=== PATIENT | female | born 1970 | race Two or more races ===

== ENCOUNTER → 2017-06-26 | Outpatient (CLI) | payer OTHER ==
[~2017-06-26] VITALS: Ht 160 cm; Wt 70.8 kg
[~2017-06-26] MED LIST: OMEP20CA9 PO
[2017-06-26 09:41] VITALS: BP 122/72
--- NOTE | 2017-06-26 13:16 | RAD ---
DATE: 06/26/2017 EXAM: DIGITAL DIAGNOSTIC LT, GUID NDL PLACE/ASPI/BX, GUID NDL PLACE/ASPI/BX HISTORY: Left breast cyst and left breast nodule. COMPARISON: Bilateral diagnostic mammogram 05/21/2017, bilateral breast sonogram 05/21/2017 FINDINGS/technique: The procedure and risk and benefits were explained to the patient and who was present during the examination and patient wished to proceed. Risks included bleeding, infection and damage to adjacent structures. Patient signed written informed consent. The left breast was prepped and draped in the usual sterile fashion. Redemonstration of a circumscribed hypoechoic left breast nodule measuring 1.5 x 0.9 x 1.6 cm. The skin was anesthetized with 1% lidocaine. The nodule was also anesthetized with 1% lidocaine. A 14-gauge Bard core biopsy needle was advanced her sonographic guidance into the nodule and two 2-cm core biopsies were obtained and placed into formalin and sent to pathology. Subsequently, the same sterile field, a left breast cyst at 12:00 position 2 cm from the nipple measuring 2.6 x 1.4 x 2.3 cm with internal echoes and no internal blood flow. Patient's overlying skin was anesthetized with lidocaine and adjacent to the cyst was also anesthetized with 1% lidocaine solution. A 18-gauge needle was advanced under sonographic guidance into the cyst with aspiration of proximal 6 mL of milky fluid. The cyst contents were sent to pathology for culture. There was complete collapse of the cyst. Postbiopsy left breast mammogram: Digital 2-D field CC and MLO views demonstrate S shaped clip on the inferior margin of the mass at approximately the 9:00 position. Sonographic survey post biopsy and aspiration did not demonstrate any sonographically detectable complication. The patient left the department in stable condition. IMPRESSION: 1. Technically successful core biopsy of left breast nodule 10:00 position 6 cm from the nipple with biopsy marker along the inferior margin of the nodule at approximately 9:00. 2. Technically successful aspiration of left breast cyst 12:00 position 2 cm from the nipple, as detailed above.
--- NOTE | 2017-06-27 13:34 | PATHOLOGY ---
PATHOLOGY REPORT * * * * * * * * FINAL DIAGNOSIS: Breast tissue, left breast mass needle biopsy: - Fibroadenoma. COMMENT: There is no evidence of malignancy. (JPM:mml; 06/27/2017) REPORT ELECTRONICALLY SIGNED BY: Oscar Lea M.D. DATE/TIME: 06/27/2017 13:33 * * * * * * * * GROSS PATHOLOGY: Received in formalin labeled "[place], left breast," are two needle cores of martinez soft tissue measuring 1.2 and 1.8 cm in length and less than 0.1 cm in diameter. The specimen is submitted entirely in cassette A1. The cold ischemic time is 5 minutes. The total formalin fixation time is 12 hours and 10 minutes. (JPM; 06/26/17) INITIAL CPT CODE(S): A; 07434 Professional services [place] [address] Technical services performed by [facility] at [address] [place] [address], [facility] [address] [address]. Dr. Lynch, [facility] Radiology fax: [phone] [facility] SPECIMEN(S) RECEIVED: A.Left breast mass CLINICAL HISTORY: Left breast mass and cyst PROCEDURE: ~5 cc of purulent appearing yellow martinez thick fluid submitted to Microbiology for cultures. PATIENT: SEYMOUR CAMP /AGE: 1009/13/1970 (Age: 46) PATIENT #: [id number] ALT CASE #: SPECIMEN COLLECTION DATE: 06/26/2017 SPECIMEN RECEIVED DATE: 06/26/2017 [facility] - [address] [place] [address] - PHONE: [phone] * * * END OF REPORT * * *
== END | disposition home or self-care (01) ==
LOC: US 09:19
PROVIDERS: ATTEND Surgery
DX: N60.02 Solitary cyst of left breast (principal); N63 Unspecified lump in breast; N64.4 Mastodynia
CPT/HCPCS: 76942; 87102; 87205; G0206; 87071; 87075; 88305; 77065

== ENCOUNTER → 2021-09-18 | Outpatient (CLI) | payer OTHER ==
[2017-06-26 09:41] VITALS: BP 122/72
[~2021-09-18] MED LIST changes: +OMEP20CA16 PO; -OMEP20CA9 PO
--- NOTE | 2021-09-18 11:03 | RAD ---
EXAM: Nuclear hepatobiliary scan. HISTORY: Pain. TECHNIQUE: Following intravenous administration of 5.5 mCi Tc 99m Choletec, anterior images of the ab domen were obtained at five minute intervals through one hour. FINDINGS: There is prompt radiotracer uptake by the liver. No focal defect is seen. There is normal e xcretion into the biliary tree. The gallbladder is visualized within 10 minutes and there is free yenifer w into the duodenum. The gallbladder ejection fraction is not calculated. IMPRESSION: Unremarkable hepatobiliary scan. Request was made for no assessment of gallbladder ejecti on fraction. Electronically signed by: Margie Lewis MD (09/18/2021 11:01 AM) [id number]
== END ==
LOC: NM 08:52
PROVIDERS: ATTEND Family Medicine
DX: R10.84 Generalized abdominal pain (principal); R10.11 Right upper quadrant pain
CPT/HCPCS: 78226; A9537; 96374

== ENCOUNTER → 2021-09-27 | Outpatient (CLI) | payer OTHER ==
[2017-06-26 09:41] VITALS: BP 122/72
--- NOTE | 2021-09-28 15:51 | RAD ---
EXAMINATION: MG DIAGNOSTIC BILAT, US BREAST BILAT History: Breast pain, history of benign left breast biopsy-fibroadenoma. History of multiple masses c onsistent in both breasts. Comparison: Mammograms 05/13/2017, 06/26/2017, 07/18/2018. Ultrasound 05/21/2017 03/18/2018, and 8. Technique: Bilateral digital diagnostic mammogram views were obtained. CAD was utilized. 3-D tomosyn thesis images were acquired. Findings: Mammogram: Breast Tissue Density C : The breasts are heterogeneously dense, which may obscure small masses. There is a 2.4 cm mass and adjacent 6 mm round mass in the upper outer left breast far posterior dept h. There is a round 4 mm mass at approximately 11-12:00 middle depth left breast. In the right breast , there is a 9 mm ovoid mass at 10:00 anterior depth to the nipple. There is a additional 8mm mass in the right breast at 12:00 posterior depth. Diffuse bilateral calcifications are unchanged. A biopsy clip is seen in the medial left breast in the region of 10:00. Ultrasound: Right breast: 12:00 5 cm from the nipple 0.7 x 0.5 x 0.4 cm anechoic simple cyst. This was seen on ultrasound 2017 and is stable. 2:00 2 cm from nipple: 1.4 x 0.8 x 0.5 cm ovoid hypoechoic circumscribed mass 2:00 3 cm the nipple: 0.4 x 0.4 x 0.3 cm ovoid hypoechoic circumscribed mass. The masses at 2:00 2-3 cm from the nipple have been seen on ultrasounds including 11/10/2018 and are stable. 9:00 2 cm from the nipple: 1.1 x 0.8 x 0.6 cm ovoid hypoechoic macrolobulated mass. There is a simple cyst of similar size in this region on ultrasound 05/21/2017 but no solid mass. There are mildly dilated ducts in the right retroareolar region with no internal mass or debris. No r ight axillary lymphadenopathy. Left breast: 2:00 7 cm the nipple: 1.9 x 1.9 x 0.7 cm ovoid hypoechoic circumscribed mass. 2:00 6 cm from nipple: 1.1 x 1.1 x 0.6 cm ovoid circumscribed mass. 11:00 5 cm the nipple: 1.1 x 0.5 x 0.4 cm anechoic simple cyst 11:00 5 cm the nipple: 0.6 x 0.6 x 0.5 cm anechoic simple cyst. The cysts seen on 11:00 5 cm from the nipple correspond with cysts in this region on 11/10/2018 and are stable. Slightly prominent ducts in the left retroareolar region. No left axillary lymphadenopathy. IMPRESSION: 1. Probably benign circumscribed bilateral masses, all similar in appearance and similar to the biops y-proven fibroadenoma in the left breast from 2017. Several of these have been stable since at least 2018 and do not require follow-up. The masses at 2:00 in the left breast and at 9:00 in the right crystal ast were not definitively seen on the prior ultrasound. Recommend 6 month follow-up ultrasound to ens ure stability. 2. Stable bilateral simple cysts. BI-RADS category 3: Probably benign. Mammography is the most sensitive method for finding small breast cancers, but it does not detect the m all and is not a substitute for careful clinical examination. A negative mammogram does not negate a clinically suspicious finding and should not result in delay in biopsying a clinically suspicious a bnormality. "Our facility is accredited by the [employer] Mammography Program." Mammography is the most sensitive method for finding small breast cancers, but it does not detect the m all and is not a substitute for careful clinical examination. A negative mammogram does not negate a clinically suspicious finding and should not result in delay in biopsying a clinically suspicious a bnormality. "Our facility is accredited by the [employer] Mammography Program." Electronically signed by: Karli Flores MD (09/28/2021 3:49 PM) [id number]
== END ==
LOC: MAMMO 11:33
PROVIDERS: ATTEND Family Medicine
DX: N60.01 Solitary cyst of right breast (principal); N60.02 Solitary cyst of left breast; N63.14 Unspecified lump in the right breast, lower inner quadrant; N63.11 Unspecified lump in the right breast, upper outer quadrant; N63.21 Unspecified lump in the left breast, upper outer quadrant
CPT/HCPCS: 77066; 76641-50

== ENCOUNTER → 2021-11-29 | Day surgery (SDC) | payer OTHER ==
[~2021-11-29] VITALS: Ht 162.6 cm; Wt 70.0 kg
[~2021-11-29] MED LIST changes: +IV RINGERS,LACTATED 1000ML 1,000 ML IV SCH; +LIDOCAINE 2% PF 5 ML VIAL. ONE; +PROPOFOL 10 MG/ML (20ML) VIAL. IV ONE; +SIMV20TA18 PO
[2021-11-29 08:37] VITALS: BP 142/68
[2021-11-29 10:24] VITALS: BP 122/68
--- NOTE | 2021-11-29 11:01 | PREOP HP ---
DATE OF SERVICE: 11/29/2021 DATE OF PROCEDURE: 11/29/2021. REQUESTING PHYSICIAN: Ta Welch MD PRIMARY CARE PHYSICIAN: Ta Welch MD REASON FOR PROCEDURE: Abdominal pain and colon cancer screening. HISTORY OF PRESENT ILLNESS: This is a 51-year-old female who presents with abdominal pain, dysphagia and for colon cancer screening. ALLERGIES: 1. PENICILLIN. 2. BACTRIM. 3. ASPIRIN. PAST MEDICAL HISTORY: Reflux. FAMILY MEDICAL HISTORY: Colon cancer. REVIEW OF SYSTEMS: A 13-point review of systems was done, it is positive as per HPI and otherwise negative. PHYSICAL EXAMINATION: VITAL SIGNS: She is afebrile and vital signs are stable. GENERAL: She is a well-developed, well-nourished female in no apparent distress. HEENT: Oropharynx is clear. CARDIOVASCULAR: S1, S2. LUNGS: Clear. ABDOMEN: Normoactive bowel sounds, soft, nontender, nondistended. EXTREMITIES: No edema. NEUROLOGIC: Awake, alert and oriented x 3. ASSESSMENT AND PLAN: 1. Abdominal pain. 2. Colon cancer screening. The risks and benefits of the upper and lower endoscopy were explained and she has agreed to proceed. Thank you for allowing me to participate in the care of this patient. LISBETH/MARCI DR: Tenisha TID: [id number]
--- NOTE | 2021-11-30 17:09 | PATHOLOGY ---
[facility] Accession Number: [id number] . 01 Material submitted: . PART A: small bowel - SMALL BOWEL BIOPSY PART B: stomach - ANTRUM AND BODY BIOPSY PART C: stomach - FUNDIC POLYP BIOPSY PART D: esophagus - DISTAL ESOPHAGUS BIOPSY. Modifiers: distal PART E: esophagus - MID ESOPHAGUS BIOPSY. Modifiers: mid PART F: colon - ASCENDING COLON POLYP BIOPSY. Modifiers: ascending . 01 Clinical history: . ABDOMINAL PAIN EGD/ COLONOSCOPY . 02 Diagnosis: A. Small bowel biopsy: - No diagnostic abnormalities. . B. Gastric biopsy, gastric body and gastric antrum: - Mild chronic antral gastritis. . C. Gastric biopsy, fundic polyp: - Fundic gland polyp. . D. Esophageal biopsy, distal esophagus: - Segments of esophagogastric and gastric mucosa showing mild chronic inflammation. . E. Esophageal biopsy, middle esophagus: - Segments of mildly hyperplastic squamous esophageal mucosa. . F. Colon biopsy, ascending colon polyp: - Prominent mucosal fold showing melanosis coli and two focally hyperplastic mucosal-associated lymphoid aggregates. (JPM:boyd; 11/30/2021) [facility] [place]30/20[place] 1648 Local . 02 Comment: Sections of the small bowel biopsy reveal segments of duodenal and small intestine mucosa. Where best oriented, the mucosal villi show no sprue-like changes or significant inflammatory changes. . Sections of the gastric biopsy reveal segments of gastric body and gastric antral mucosa. The gastric body mucosa shows superficial congestion and no significant inflammation. The gastric antral mucosa shows congestion and mild chronic inflammation. A properly controlled immunoperoxidase stain for Helicobacter is negative for Helicobacter organisms. . Sections of the gastric fundic biopsy reveal a fundic gland polyp. There are no adenomatous changes or evidence of malignancy. . Sections of the distal esophageal biopsy reveal segments of esophagogastric and gastric mucosa showing mild chronic inflammation. The squamous mucosa is mildly hyperplastic, consistent with reflux changes. There is no evidence of Carias's change, dysplasia, or malignancy. . Sections of the middle esophagus biopsy reveal segments of tangentially oriented mildly hyperplastic squamous esophageal mucosa. . Sections of the ascending colon polyp biopsy reveal a segment of colonic mucosa consistent with prominent fold, which shows melanosis coli and contains two focally hyperplastic muocsal-associated lymphoid aggregates. There are no adenomatous changes or evidence of malignancy. (JPM:boyd; 11/30/2021) . . Special stain performed: Immunoperoxidase stain for Helicobacter on B1 . 02 Electronically signed: . Oscar Lea MD, Pathologist NPI- [id number] . 01 Gross description: . A. The specimen is received in formalin, labeled "Favelasalas, Marylin, small bowel BX". Received are 4 segments of pale martinez tissue ranging in size from 0.3-0.4 cm in maximum dimensions. The specimen is entirely submitted in cassette A1. . B. The specimen is received in formalin, labeled "Favelasalas, Marylin, antrum and body BX". Received are 4 segments of pale martinez tissue ranging in size from 0.3-0.5 cm in maximum dimensions. The specimen is entirely submitted in cassette B1. . C. The specimen is received in formalin, labeled "Favelasalas, Marylin, fundic polyps BX". Received are 3 segments of pale martinez tissue ranging in size from 0.3-0.4 cm in maximum dimensions. The specimen is entirely submitted in cassette C1. . D. The specimen is received in formalin, labeled "Favelasalas, Marylin, distal esophagus BX". Received are 2 segments of pale martinez tissue ranging in size from 0.2-0.3 cm in maximum dimensions. The specimen is entirely submitted in cassette D1. . E. The specimen is received in formalin, labeled "Favelasalas, Marylin, mid esophagus BX". Received are 2 segments of pale martinez tissue measuring 0.2 and 0.3 cm in maximum dimensions. The specimen is entirely submitted in cassette E1. . F. The specimen is received in formalin, labeled "Favelasalas, Marylin, ascending colon polyp BX". Received is a single segment of pale martinez tissue measuring 0.4 cm in maximum dimensions. The specimen is entirely submitted in cassette F1. ([facility]; 11/29/2021) NRI/NRI 11/29/2021 [facility]6 Local . 02 Pathologist provided ICD-10: K29.50, K31.7, K20.90, K63.89 . 02 CPT . 781536, 653506, 472463, 828076, 107295, 283964, [id number] Specimen Comment: A courtesy copy of this report has been sent to [phone], [phone] Specimen Comment: [id number] Specimen Comment: Report sent to / DR JUDD Specimen Comment: A duplicate report has been generated due to demographic updates. Performed at: 01 [facility] [address] [facility], [place] [id number] MD Claude Carver MD Phone: [phone] Performed at: 02 [facility] [address] [place], [place] [id number] MD Oscar Lea MD Phone: [phone]
== END | disposition home or self-care (01) ==
LOC: ENDOS 08:01
PROVIDERS: ATTEND Internal Medicine Gastroenterology
DX: R10.11 Right upper quadrant pain (principal); R13.10 Dysphagia, unspecified; K64.0 First degree hemorrhoids; K29.50 Unspecified chronic gastritis without bleeding; K31.7 Polyp of stomach and duodenum; K63.5 Polyp of colon; K31.89 Other diseases of stomach and duodenum; K63.89 Other specified diseases of intestine; K21.00 Gastro-esophageal reflux disease with esophagitis, without bleeding; E78.00 Pure hypercholesterolemia, unspecified; Z79.899 Other long term (current) drug therapy; Z98.890 Other specified postprocedural states; Z88.0 Allergy status to penicillin; Z88.1 Allergy status to other antibiotic agents; Z88.2 Allergy status to sulfonamides; Z88.8 Allergy status to other drugs, medicaments and biological substances; Z20.822 Contact with and (suspected) exposure to COVID-19
CPT/HCPCS: 43239; 43450; 45380; 81025; 87426; J2704; 88305; 88342

== ENCOUNTER → 2022-02-21 | Outpatient (CLI) | payer OTHER ==
[2021-11-29 10:24] VITALS: BP 122/68
[~2022-02-21] MED LIST changes: -IV RINGERS,LACTATED 1000ML 1,000 ML IV SCH; -LIDOCAINE 2% PF 5 ML VIAL. ONE; -PROPOFOL 10 MG/ML (20ML) VIAL. IV ONE; +SINCALIDE 1.43 MCG in IV NORMAL SALINE 50ML 30 ML IV ONE
--- NOTE | 2022-02-21 10:34 | RAD ---
EXAM: ULTRASOUND ABDOMEN COMPLETE CLINICAL HISTORY: Pain. COMPARISON: None available. TECHNIQUE: Ultrasound of the upper abdomen was performed. FINDINGS: The liver is normal in size. No hepatic lesion is seen. The gallbladder is unremarkable. Th e common bile duct is normal in caliber. The kidneys are normal in size. There is no hydronephrosis. The spleen is normal in size. The pancreas is obscured due to bowel gas. The aorta is normal in calib er. The inferior vena cava is patent. IMPRESSION: 1. No acute sonographic finding. 2. Obscured pancreas due to bowel gas. Electronically signed by: Margie Lewis MD (02/21/2022 10:32 AM) [facility]
--- NOTE | 2022-02-21 10:47 | RAD ---
EXAM: Nuclear hepatobiliary scan. HISTORY: Pain. TECHNIQUE: Following intravenous administration of 5.4 mCi Tc 99m Choletec, anterior images of the ab domen were obtained at five minute intervals through one hour. Subsequently, 1.43 mcg Kinevac was adm inistered and additional images to assess gallbladder ejection fraction were obtained. FINDINGS: There is prompt radiotracer uptake by the liver. No focal defect is seen. There is normal e xcretion into the biliary tree. The gallbladder is visualized within 5 minutes and there is free flow into the duodenum. The gallbladder ejection fraction is 89 percent. IMPRESSION: High gallbladder ejection fraction of 89 percent. Electronically signed by: Margie Lewis MD (02/21/2022 10:45 AM) [facility]
== END ==
LOC: US 07:41
PROVIDERS: ATTEND Internal Medicine Gastroenterology
DX: R14.3 Flatulence (principal)
CPT/HCPCS: 76700; 78227; A9537; J2805

== ENCOUNTER 2022-04-11 12:35 | Emergency (ER) | payer OTHER ==
[~2022-04-11] VITALS: Ht 162.6 cm; Wt 70.1 kg
[~2022-04-11 12:35] MED LIST changes: -SINCALIDE 1.43 MCG in IV NORMAL SALINE 50ML 30 ML IV ONE
[2022-04-11 12:38] VITALS: BP 154/75
[2022-04-11] MEDS ORDERED: IV NORMAL SALINE 1000ML BAG 1,000 ML IV ONE (13:15)
[2022-04-11] MEDS ORDERED: ONDANSETRON PF 4 MG/2 ML VIAL. IVP ONE (13:15)
[2022-04-11] MEDS ORDERED: MORPHINE SULFATE 4 MG/ML INJ. IVP ONE (13:15)
[2022-04-11 13:27] LABS: BASO % 0 % (0-3); EOS # 0.1 x10^3/uL (0.0-0.7); EOS % 1 % (0-3); HEMATOCRIT 38.8 % (36.0-47.0); HEMOGLOBIN 13.5 g/dL (12.0-15.5); LYMPH # 1.5 x10^3/uL (1.0-4.8); LYMPH % 26 % (24-48); MEAN CORPUSCULAR HEMOGLOBIN 33 pg (25-35); MEAN CORPUSCULAR HGB CONC 35 g/dL (31-37); MEAN CORPUSCULAR VOLUME 95 fL (79-100); MONO # 0.3 x10^3/uL (0.0-1.1); MONO % 6 % (0-9); NEUT # 3.9 x10^3/uL (1.8-7.7); NEUT % 67 % (31-73); PLATELET COUNT 228 x10^3/uL (140-400); WHITE BLOOD COUNT 5.8 x10^3/uL (4.0-11.0)
[2022-04-11 13:36] LABS: CALCIUM 8.6 mg/dL (8.5-10.1); CREATININE 0.8 mg/dL (0.6-1.0); GFR 75.3; PROTHROMBIN TIME PATIENT 12.5 SEC (11.7-14.0)
[2022-04-11 13:41] LABS: ALBUMIN 3.5 g/dL (3.4-5.0); TOTAL BILIRUBIN 0.2 mg/dL (0.2-1.0); TOTAL PROTEIN 6.9 g/dL (6.4-8.2)
--- NOTE | 2022-04-11 13:41 | RAD ---
CT abdomen and pelvis without contrast PQRS statement: CT scans at this facility use dose reduction including either automated exposure cont rol, iterative reconstructions, and /or weight based radiation dosing via mA and kV modification when appropriate to reduce radiation dose to as low as reasonably achievable. HISTORY: Abdominal pain. Status post cholecystectomy one week ago. Abdomen findings: 3 mm nodule right middle lobe image 1. Recent cholecystectomy, no fluid collection or hematoma at the gallbladder fossa evident. Inferior posterior right hepatic lobe 2 cm cyst density . Units. Spleen, pancreas, adrenal glands unremarkable. Mild bilateral renal pelviectasis. No urinary calculi. No obstruction or inflammation of the GI tract. Appendix is normal. No abdominal fluid or h ematoma. No abdominal wall fluid collection or hematoma. Bones are unremarkable. Pelvis findings: Globular enlarged uterus, perhaps due to underlying leiomyomas although this is inde terminate. Ovaries, bladder, rectum and bones are unremarkable. No pelvic fluid. IMPRESSION: 1. No acute process. 2. Cholecystectomy. No fluid collection or hematoma at the gallbladder fossa or within the abdomen or pelvis. 3. The appendix is normal. 4. Globular enlarged uterus. Perhaps this is due to underlying leiomyomas or due to an other underlyi ng uterine mass. Consider further assessment with pelvic sonography. 5. 3 mm right middle lobe solitary pulmonary nodule. If the patient has risk factors for malignancy, consider CT chest imaging follow-up in 12 months, otherwise no follow-up is necessary, based on the F germánchner guidelines. Electronically signed by: Dimitri Brock MD (04/11/2022 1:39 PM) [facility]
[2022-04-11] MEDS ORDERED: POLY17PO29 PO (14:36)
--- NOTE | 2022-04-11 14:44 | PHYS DOC ---
Past Medical History Past Medical History: No Pertinent History, GERD Past Surgical History: Cholecystectomy Smoking Status: Never Smoker Alcohol Use: None Adult General Chief Complaint Chief Complaint: POST-OP PROBLEM HPI HPI 51-year-old female, past medical history GERD, gastritis, recent cholecystectomy approximately 1 week ago, presents with diffuse abdominal pain, constipation, only passed a small BM after taking [id number] herbal laxative. Denies fever, chills, nausea, vomiting, chest pain, shortness of breath or urinary complaints. Patient states he had an unremarkable postop period however has had difficulty controlling the pain with ibuprofen that she was prescribed and therefore she took 1 oxycodone. Review of Systems Review of Systems Constitutional: Denies fever or chills [] Eyes: Denies change in visual acuity, redness, or eye pain [] HENT: Denies nasal congestion or sore throat [] Respiratory: Denies cough or shortness of breath [] Cardiovascular: No additional information not addressed in HPI [] GI: + abdominal pain and constipation, no nausea, vomiting, bloody stools or diarrhea [] : Denies dysuria or hematuria [] Musculoskeletal: Denies back pain or joint pain [] Integument: Denies rash or skin lesions [] Neurologic: Denies headache, focal weakness or sensory changes [] Endocrine: Denies polyuria or polydipsia [] All other systems were reviewed and found to be within normal limits, except as documented in this note. Current Medications Current Medications Current Medications Medications (Trade) Dose Ordered Sig/Rinku Start Time Stop Time Status Last Admin Dose Admin Morphine Sulfate (Morphine Sulfate) 4 mg 1X ONCE 04/11/22 13:15 04/11/22 13:16 DC 04/11/22 13:34 4 MG Ondansetron HCl (Zofran) 4 mg 1X ONCE 04/11/22 13:15 04/11/22 13:16 DC 04/11/22 13:34 4 MG Sodium Chloride 1,000 ml @ 999 mls/hr 1X ONCE 04/11/22 13:15 04/11/22 14:15 DC 04/11/22 13:34 999 MLS/HR Allergies Allergies Allergies Coded Allergies Type Severity Reaction Last Updated Verified salicylic acid Allergy Severe facial/ throat swelling 11/29/21 Yes Penicillins Allergy Intermediate 11/29/21 Yes sulfamethoxazole Allergy Intermediate 11/29/21 Yes trimethoprim Allergy Intermediate 11/29/21 Yes Physical Exam Physical Exam Constitutional: Well developed, well nourished, no acute distress, non-toxic appearance. [] HENT: Normocephalic, atraumatic, bilateral external ears normal, oropharynx moist, no oral exudates, nose normal. [] Eyes: PERRLA, EOMI, conjunctiva normal, no discharge. [] Neck: Normal range of motion, no tenderness, supple, no stridor. [] Cardiovascular:Heart rate regular rhythm, no murmur [] Lungs & Thorax: Bilateral breath sounds clear to auscultation [] Abdomen: Bowel sounds normal, soft, +mild epigastric ttp, no masses, no pulsatile masses. [] Skin: Warm, dry, no erythema, no rash. [] Back: No tenderness, no CVA tenderness. [] Extremities: No tenderness, no cyanosis, no clubbing, ROM intact, no edema. [] Neurologic: Alert and oriented X 3, normal motor function, normal sensory function, no focal deficits noted. [] Psychologic: Affect normal, judgement normal, mood normal. [] Current Patient Data Vital Signs Vital Signs Date Time Temp Pulse Resp B/P (MAP) Pulse Ox O2 Delivery O2 Flow Rate FiO2 04/11/22 13:34 20 99 Room Air 04/11/22 12:38 98.6 74 154/75 (101) 98.6 Lab Values Laboratory Tests Test 04/11/22 13:18 White Blood Count 5.8 x10^3/uL (4.0-11.0) Red Blood Count 4.10 x10^6/uL (3.50-5.40) Hemoglobin 13.5 g/dL (12.0-15.5) Hematocrit 38.8 % (36.0-47.0) Mean Corpuscular Volume 95 fL (79-100) Mean Corpuscular Hemoglobin 33 pg (25-35) Mean Corpuscular Hemoglobin Concent 35 g/dL (31-37) Red Cell Distribution Width 14.0 % (11.5-14.5) Platelet Count 228 x10^3/uL (140-400) Neutrophils (%) (Auto) 67 % (31-73) Lymphocytes (%) (Auto) 26 % (24-48) Monocytes (%) (Auto) 6 % (0-9) Eosinophils (%) (Auto) 1 % (0-3) Basophils (%) (Auto) 0 % (0-3) Neutrophils # (Auto) 3.9 x10^3/uL (1.8-7.7) Lymphocytes # (Auto) 1.5 x10^3/uL (1.0-4.8) Monocytes # (Auto) 0.3 x10^3/uL (0.0-1.1) Eosinophils # (Auto) 0.1 x10^3/uL (0.0-0.7) Basophils # (Auto) 0.0 x10^3/uL (0.0-0.2) Prothrombin Time 12.5 SEC (11.7-14.0) Prothrombin Time INR 1.0 (0.8-1.1) Sodium Level 141 mmol/L (136-145) Potassium Level 4.0 mmol/L (3.5-5.1) Chloride Level 106 mmol/L (98-107) Carbon Dioxide Level 25 mmol/L (21-32) Anion Gap 10 (6-14) Blood Urea Nitrogen 9 mg/dL (7-20) Creatinine 0.8 mg/dL (0.6-1.0) Estimated GFR (Cockcroft-Gault) 75.3 BUN/Creatinine Ratio 11 (6-20) Glucose Level 119 mg/dL (70-99) H Calcium Level 8.6 mg/dL (8.5-10.1) Total Bilirubin 0.2 mg/dL (0.2-1.0) Direct Bilirubin 0.0 mg/dL (0.0-0.2) Aspartate Amino Transferase (AST) 18 U/L (15-37) Alanine Aminotransferase (ALT) 31 U/L (14-59) Alkaline Phosphatase 80 U/L (46-116) Total Protein 6.9 g/dL (6.4-8.2) Albumin 3.5 g/dL (3.4-5.0) Albumin/Globulin Ratio 1.0 (1.0-1.7) Lipase 88 U/L (73-393) Laboratory Tests 04/11/22 13:18 Laboratory Tests 04/11/22 13:18 EKG EKG [] Radiology/Procedures Radiology/Procedures [] Course & Med Decision Making Course & Med Decision Making Pertinent Labs and Imaging studies reviewed. (See chart for details) Additional Social History: PMD from non-affiliated facility. Patient Lives at home. Family History: Non-pertinent to today's complaint. Nursing Notes Reviewed Previous Medical Records requested via [facility] Web: Reviewed by me. EMERGENT LABS AND DIAGNOSTIC STUDIES: Results were reviewed and interpreted by me as below CBC: Shows no evidence of leukocytosis or anemia. Platelet count is normal Chemistry: Shows no electrolyte abnormalities Otherwise within normal limits, unremarkable or as noted above. REASON: abd pain, s/p cholecystectomy 04/04/22 PROCEDURE: CT ABDOMEN PELVIS WO CONTRAST IMPRESSION: 1. No acute process. 2. Cholecystectomy. No fluid collection or hematoma at the gallbladder fossa or within the abdomen or pelvis. 3. The appendix is normal. 4. Globular enlarged uterus. Perhaps this is due to underlying leiomyomas or due to an other underlying uterine mass. Consider further assessment with pelvic sonography. 5. 3 mm right middle lobe solitary pulmonary nodule. If the patient has risk factors for malignancy, consider CT chest imaging follow-up in 12 months, otherwise no follow-up is necessary, based on the Fleischner guidelines. EMERGENCY DEPARTMENT COURSE/ MEDICAL DECISION MAKING: The patient was placed on a conveyor monitor, continuous pulse oximetry and was given supplemental oxygen. I examined the patient, evaluated and addressed patient's chief complaint. The patient was treated with morphine, zofran, IV fluids. No acute infectious or surgical pathology on CT a/p. Labs unremarkable. Vitals wnl. Well appearing. On re-assessment, patient feels much better. Stable for dc home with routine pmd f/u, miralax, omeprazole, and scheduled Gen Surg f/u in 2 weeks. The patient understands that todays Emergency Department evaluation does not represent a comprehensive medical workup, and it is impossible to diagnose all possible illnesses from a single Emergency Department visit. The patient verbalized understanding that it is absolutely necessary to have follow-up with regular primary care physician within 1-2 days for more detailed workup and continued exam. I explained the findings and plan to the patient, who expressed verbal understanding and agreed with plan for discharge and follow up. The patient was given after care instructions and welcomed to return to the ED for re-evaluation in 8-12 hours, especially for any new or worsening symptoms. Patient's blood pressure was elevated (>120/80) but appears stable without evidence of end organ damage, malignant hypertension, hypertensive emergency or urgency. The patient was counseled about the risks of hypertension and urged to pursue outpatient monitoring and therapy within a week with their primary care physician. The patient was stable at the time of discharge. DIAGNOSTIC IMPRESSION: 1. abd pain 2. constipation 3. gastritis 4. gerd DISPOSITION: Disposition: Discharge Home. Condition: Improved Follow-Up: PMD, gen surg Prescriptions: miralax, omeprazole Return to the Emergency Department for new or worsening symptoms. Dragon Disclaimer Dragon Disclaimer This electronic medical record was generated, in whole or in part, using a voice recognition dictation system. Departure Departure Impression: Primary Impression: Abdominal pain Additional Impressions: History of cholecystectomy Constipation Disposition: HOME / SELF CARE / HOMELESS Condition: STABLE Patient Instructions: Gastritis, Adult, Cholecystostomy Additional Instructions: Please follow up with your primary care physician and general surgeon as rinku wild. Dusty un seguimiento con em mdico de atencin primaria y cirujano general segn lo programado. Scripts Omeprazole (OMEPRAZOLE) 40 Mg Capsule.dr 1 CAP PO DAILY, #30 CAP 3 Refills Prov: KEVIN ANDERSON MD 04/11/22 Polyethylene Glycol 3350 (MIRALAX) 17 Gm Powd.pack 1 PACKET PO DAILY for constipation for 14 Days, #30 PACKET 0 Refills dissolve in water Prov: KEVIN ANDERSON MD 04/11/22 Problem Qualifiers KEVIN ANDERSON MD April 11, 2022 14:44
[2022-04-11] MEDS ORDERED: OMEP40CA7 PO (14:55)
== END 2022-04-11 14:53 | disposition home or self-care (01) ==
LOC: ER 12:35
DX: K29.70 Gastritis, unspecified, without bleeding (principal); K21.9 Gastro-esophageal reflux disease without esophagitis; K59.00 Constipation, unspecified; Z90.49 Acquired absence of other specified parts of digestive tract; Z88.0 Allergy status to penicillin; Z88.2 Allergy status to sulfonamides; Z88.1 Allergy status to other antibiotic agents; Z88.8 Allergy status to other drugs, medicaments and biological substances
CPT/HCPCS: 36415; 74176; 80053; 82248; 83690; 85025; 85610; 86850; 86900; 86901; 96361; 96374; 96375; 99284; J2270; J2405; J7030

== ENCOUNTER → 2022-04-15 | Outpatient (CLI) | payer OTHER ==
[2022-04-11 12:38] VITALS: BP 154/75
[~2022-04-15] MED LIST changes: +OMEP40CA7 PO; +POLY17PO29 PO
--- NOTE | 2022-04-15 13:11 | RAD ---
XR CERVICAL SPINE 2-3V History: Reason: NECK PAIN.BILAT UPPER EXTREMITY PAIN AND NUMBNESS. / Spl. Instructions: / History: Technique: 3 views cervical spine. Comparison: None. Findings: Straightening of the cervical spine. Normal vertebral body height. No acute fracture. Mild degenerati ve changes most prominent C5-C6. Prevertebral soft tissues are unremarkable. Normal alignment C1 on C 2. Impression: 1. Mild cervical spondylosis. Electronically signed by: Shaji Banerjee DO (04/15/2022 1:09 PM) [id number]
== END ==
LOC: RAD 09:00
PROVIDERS: ATTEND Family Medicine
DX: M47.812 Spondylosis without myelopathy or radiculopathy, cervical region (principal)
CPT/HCPCS: 72040